=== PATIENT | female | born 1940 | race Caucasian/White ===

== ENCOUNTER 2018-01-15 10:34 | Inpatient (IN) | payer MEDICARE ==
[~2018-01-15] VITALS: Ht 165.1 cm; Wt 81.6 kg
[~2018-01-15 10:34] MED LIST changes: -B-121000 MC1 PO; -ECHINACE9 PO; -MAGN SULFATE70 MG PO; -NEXIUM40 M1 PO; -PERCOCET1 TA4 PO; -PRENATA3 PO
[2018-01-15] MEDS ORDERED: MAGN SULFATE70 MG PO (11:35)
[2018-01-15] MEDS ORDERED: B-121000 MC1 PO (11:36)
[2018-01-15] MEDS ORDERED: NEXIUM40 M1 PO (11:41)
[2018-01-15] MEDS ORDERED: ECHINACE9 PO (11:41)
[2018-01-15] MEDS ORDERED: PRENATA3 PO (11:42)
[2018-01-19 19:15] VITALS: BP 182/84
[2018-01-19 19:30] VITALS: BP 187/84
[2018-01-19 19:45] VITALS: BP 196/69
[2018-01-19 20:00] VITALS: BP 169/61
[2018-01-19 20:30] VITALS: BP 157/58
[2018-01-20] VITALS: BP 119/58
[2018-01-20 05:35] LABS: HEMOGLOBIN 11.4 g/dl (12.0-16.0)
[2018-01-20 07:00] VITALS: BP 129/86
[2018-01-20 08:00] VITALS: BP 123/59
[2018-01-20 12:00] VITALS: BP 133/62
[2018-01-20] MEDS ORDERED: PERCOCET1 TA4 PO (12:33)
== END 2018-01-20 13:25 | disposition home health service (06) | DRG 483 ==
LOC: ICU 01-19 11:33 → MS2 01-19 18:30 → ICU 01-20 13:25
PROVIDERS: ADMIT Orthopaedic Surgery; ATTEND Orthopaedic Surgery
PROC: 0RRJ00Z Replacement of Right Shoulder Joint with Reverse Ball and Socket Synthetic Substitute, Open Approach (ICD-10-PCS; principal; 2018-01-19)
PROC: 0LS30ZZ Reposition Right Upper Arm Tendon, Open Approach (ICD-10-PCS; 2018-01-19)
PROC: 3E0T3BZ Introduction of Anesthetic Agent into Peripheral Nerves and Plexi, Percutaneous Approach (ICD-10-PCS; 2018-01-19)
DX: M75.121 Complete rotator cuff tear or rupture of right shoulder, not specified as traumatic (principal); M19.011 Primary osteoarthritis, right shoulder; S46.211A Strain of muscle, fascia and tendon of other parts of biceps, right arm, initial encounter; I10 Essential (primary) hypertension; K21.9 Gastro-esophageal reflux disease without esophagitis; F32.9 Major depressive disorder, single episode, unspecified; X58.XXXA Exposure to other specified factors, initial encounter; Z85.3 Personal history of malignant neoplasm of breast; Z90.11 Acquired absence of right breast and nipple; Z87.891 Personal history of nicotine dependence
CPT/HCPCS: C9290; J2710

== ENCOUNTER → 2018-01-15 | Outpatient (REF) | payer MEDICARE ==
[~2018-01-15] VITALS: Ht 152.4 cm; Wt 81.6 kg
[~2018-01-15] MED LIST: ACYCLOVIR800 MG PO; B-121000 MC1 PO; CIPROFLOXACN250 MG PO; CIPROFLOXACN500 MG PO; CITALOPRAM40 MG PO; CLINDAMYCIN150 MG PO; DETROL2 MG OR; DICLOFENAC75 MG PO; DITROPAN PO; ECHINACE9 PO; FAMVIR500 MG PO; FLEXERIL5 MG PO; FLUARIX QUADRIV1 INJ IM; MAGN SULFATE70 MG PO; MEDDOSEPAK OR; MEDDOSEPAK PO; METOPROL TAR25 MG PO; NEXIUM40 M1 OR; NEXIUM40 M1 PO; NITROFURANTN100 MG PO; PERCOCET1 TA4 PO; PRENATA3 PO; TRAMADOL HCL50 MG PO
[2018-01-15 11:29] VITALS: BP 162/77
== END | disposition home or self-care (01) ==
LOC: PO 10:29 → ORM 10:30
PROVIDERS: ATTEND Orthopaedic Surgery
DX: Z01.818 Encounter for other preprocedural examination (principal); M75.121 Complete rotator cuff tear or rupture of right shoulder, not specified as traumatic; Z96.653 Presence of artificial knee joint, bilateral; Z90.710 Acquired absence of both cervix and uterus; Z96.612 Presence of left artificial shoulder joint; Z90.49 Acquired absence of other specified parts of digestive tract

== ENCOUNTER 2020-06-09 10:34 | Day surgery (SDC) | payer MEDICARE ==
[~2020-06-09 10:34] MED LIST changes: +AMBIEN5 MG PO; +AMLODIPINE BESYL5 MG PO; +B-121000 MC1 PO; +CARAFATE1 GM PO; +CRESTOR20 MG PO; +ECHINACE9 PO; +FLUOXETINE10 M2 PO; +FOSAMAX PLUS PO; +HYDROCO/APAP1 T10 PO; +KEFLEX500 MG PO; +MAGN SULFATE70 MG PO; +NEXIUM40 M1 PO; +PERCOCET1 TA4 PO; +PRENATA3 PO; +TRAZODONE50 MG PO; +VITAMIN D32000 UNI2 PO
[2020-06-09 14:25] VITALS: BP 145/82
== END 2020-06-09 14:42 | disposition home or self-care (01) ==
LOC: ORM 10:34
PROVIDERS: ATTEND Podiatrist Foot & Ankle Surgery
PROC: 0QPN04Z Removal of Internal Fixation Device from Right Metatarsal, Open Approach (ICD-10-PCS; principal; 2020-06-09)
DX: T84.84XA Pain due to internal orthopedic prosthetic devices, implants and grafts, initial encounter (principal); M25.774 Osteophyte, right foot; Y83.1 Surgical operation with implant of artificial internal device as the cause of abnormal reaction of the patient, or of later complication, without mention of misadventure at the time of the procedure; Z20.822 Contact with and (suspected) exposure to COVID-19

== ENCOUNTER 2020-07-04 12:52 | Emergency (ER) | payer MEDICARE ==
[~2020-07-04] VITALS: Ht 152.4 cm; Wt 81.8 kg
[2020-07-04 14:23] LABS: HEMATOCRIT 43.5 % (37.0-47.0); HEMOGLOBIN 13.6 g/dl (12.0-16.0); IMMATURE GRANULOCYTES 0.5 % (0.0-5.0); MEAN CELL VOLUME 93.1 fL CALC (80.0-100.0); MEAN CORPUSCULAR HGB 29.1 pG CALC (26.0-32.0); MEAN CORPUSCULAR HGB CONC 31.3 g/dL CAL (32.0-36.0); NEUT# 6.72 thou/uL (2.00-7.15); RED BLOOD COUNT 4.67 mill/uL (4.20-5.60); RED CELL DISTRI WIDTH 13.6 % (11.5-15.5)
[2020-07-04 14:36] LABS: ALBUMIN 4.7 g/dL (3.2-5.0); CREATININE 1.1 mg/dL (0.5-1.0)
[2020-07-04 14:39] LABS: BILIRUBIN, TOTAL 0.8 mg/dL (0.0-1.4)
[2020-07-04 14:56] LABS: ACT PARTIAL THROMBO TIME 19.2 SECONDS (20.0-32.5); PROTHROMBIN TIME 10.4 SECONDS (9.0-12.5)
[2020-07-04 16:45] VITALS: BP 135/64
== END 2020-07-04 16:45 | disposition short-term general hospital (02) ==
LOC: ED 12:52
DX: K92.0 Hematemesis (principal); I10 Essential (primary) hypertension; Z20.822 Contact with and (suspected) exposure to COVID-19
CPT/HCPCS: S0164

== ENCOUNTER 2021-03-23 08:48 | Day surgery (SDC) | payer MEDICARE ==
[~2021-03-23] VITALS: Ht 152.4 cm; Wt 71.7 kg
[~2021-03-23 08:48] MED LIST changes: +AMLODIPINE BESY10 MG PO; +SUCRALFATE1 GM PO; +TRAZODONE100 MG PO; +ZOLPIDEM ER12.5 MG PO
[2021-03-23 12:55] VITALS: BP 139/62
== END 2021-03-23 13:10 | disposition home or self-care (01) ==
LOC: ORM 08:48
PROVIDERS: ATTEND Urology
PROC: 3E0K8GC Introduction of Other Therapeutic Substance into Genitourinary Tract, Via Natural or Artificial Opening Endoscopic (ICD-10-PCS; principal; 2021-03-23)
DX: N39.46 Mixed incontinence (principal); E11.22 Type 2 diabetes mellitus with diabetic chronic kidney disease; I12.9 Hypertensive chronic kidney disease with stage 1 through stage 4 chronic kidney disease, or unspecified chronic kidney disease; N18.30 Chronic kidney disease, stage 3 unspecified; F41.9 Anxiety disorder, unspecified; Z87.440 Personal history of urinary (tract) infections
CPT/HCPCS: J0585; J1956